=== PATIENT | female | born 1945 | race Caucasian/White ===

== ENCOUNTER 2023-11-16 14:53 | Emergency (ER) | payer OTHER ==
[2023-11-16 15:36] VITALS: BP 165/71; PULSE 84; RESP 18; TEMP 98.9; BMI 23.8
[2023-11-16] MEDS ORDERED: BACITRACIN ZINC 15 GM TUBE TOPICAL OINTMENT ONE ×2 (17:04→17:23)
[2023-11-16] MEDS ORDERED: BACITRACIN 0.9 GM PACKET ONE (17:22)
[2023-11-16] MEDS: BACITRACIN ZINC 15 GM TUBE TOPICAL OINTMENT TP ONE (17:25)
== END 2023-11-16 21:05 | disposition home or self-care (01) ==
LOC: JER 14:53
DX: S01.81XA Laceration without foreign body of other part of head, initial encounter (principal); Y04.0XXA Assault by unarmed brawl or fight, initial encounter
CPT/HCPCS: 99283-25